=== PATIENT | female | born 1980 | race Caucasian/White ===

== ENCOUNTER 2019-03-31 20:35 | Inpatient (IN) | payer SELFPAY, OTHER ==
[2019-03-31 21:12] VITALS: BMI 28.8
[2019-03-31] MEDS: Lactated Ringers 500 ML 999 ML IV (21:30)
[2019-03-31] MEDS: Azithromycin 250 MG Tablet 500 MG PO (21:47)
[2019-03-31] MEDS: Betamethasone/Betamethasone 30 MG/5 ML Vial 12 MG IM (21:47)
[2019-03-31] MEDS: Lactated Ringers 1,000 ML 50 ML IV (22:00)
[2019-03-31 22:18] LABS: Absolute Lymphocyte Count 1.17 X10^3/uL (0.83-4.51); Absolute Neutrophil Count 10.3 X10^3/uL (2.0-7.7); Basophil# 0.02 X10^3/uL; Basophil% 0.2 % (0-1); Eosinophil# 0.02 X10^3/uL; Eosinophils% 0.2 % (0-5); Hematocrit 38.6 % (37-47); Hemoglobin 12.8 g/dL (12.0-15.0); Lymphocyte # 1.17 X10^3/ul (4.0); Lymphocyte % 9.2 % (19-41); Mean Corp Hgb Conc 33.2 g/dL (32-36); Mean Corpuscular Hgb 30.6 pg (27.0-32.0); Mean Corpuscular Volume 92.3 fL (81-99); Monocyte# 1.09 X10^3/uL; Monocyte% 8.6 % (0-10); NRBC Flagged by Analyzer 0 % (0-5); Neutrophil # 10.31 X10^3/uL (2.7-7.7); Neutrophil % 81.3 % (47-70); Platelet Count 251 K/mm3 (150-450); RBC Distribution Width CV 13.5 % (11.6-14.6); RBC Distribution Width SD 45.3 fl (35.1-43.9); Red Blood Count 4.18 M/mm3 (4.2-5.4); White Blood Count 12.7 K/mm3 (4.4-11.0)
[2019-03-31 22:23] LABS: ROM Internal Control Test YES-OK TO RESULT pt. (Internal QC); Record Kit Lot#, ROM+ J8255
[2019-03-31 22:24] LABS: ROM Patient Test POSITIVE (Negative)
[2019-03-31 22:55] LABS: Bacteria 0 SEEN /hpf (None Seen)
[2019-03-31 22:56] LABS: Color, Urine Yellow (Yellow); Glucose, Dipstick Normal (Normal); Leukocyte Esterase-Dipstick 500 /ul (Negative); Nitrite-Dipstick Negative (Negative); Occult Blood-Urine 10 /ul (Negative); Protein-Dipstick 15 mg/dl (Negative); Specific Gravity, Urine 1.025 (1.002-1.030); Urine Bilirubin Dipstick Negative (Negative); Urine Clarity Clear (Clear); Urine Urobilinogen Normal (Normal)
[2019-03-31 23:05] LABS: Ketone-Dipstick 150 mg/dl (Negative)
[2019-03-31 23:08] LABS: Rubella IgG 138.1 IU/mL
[2019-03-31 23:13] LABS: Mucous, Urine 1+ /hpf (<or=2+); Red Blood Cells-Urine 0 SEEN /hpf (0-5); Squamous Epithelial Cells - UA 0-5 SEEN /hpf (5-10); White Blood Cells 5-10 SEEN /hpf (0-5)
[2019-03-31 23:24] LABS: Group B Strep DNA By PCR Negative (Negative); Internal Control PASS; Probe Check PASS; Specimen Processing Control PASS
[2019-04-01 01:13] LABS: Chlamydia Trachomatis by PCR Negative (Negative); Neisserai gonorrhoeae by PCR Negative (Negative); Probe Check PASS; Sample Adequacy Control PASS; Specimen Processing Control PASS
[2019-04-01] MEDS: Amnioinfusion- 0.9% NS 1,000 ML IV.SOLN. 1000 ML INTRA-UTER (01:53)
--- NOTE | 2019-04-01 02:24 | PCM.HP.OB ---
- Problem List (1) premature rupture of membranes (PPROM) with onset of labor after 24 hours of rupture in third trimester, antepartum Status: Acute (2) History of delivery Status: Acute (3) Grand multipara in labor Status: Acute (4) Prematurity of fetus Status: Acute History Date of Admission: 03/31/19 Final FANNY: 05/06/19 Gestational age: 35 Weeks and 0 Days History of this : This is a 38 year-old, , at 34 weeks gestational age presents with P PROM. She started having clear loss of fluid at 6 AM on 10 and has intermittent discharge then with clear fluid. Patient denies any fevers or significant abdominal pain. She is a history of one previous delivery and one . 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 She has not had a formal ultrasound or lab work on the prior to today. Surgical History: Surgical History (Last Updated 04/01/19 @ 02:28 by Tiffany Villalba MD) History of delivery Z98.891 Allergies No Known Allergies Allergy (Verified 03/31/19 22:21) Smoking Status: Never smoker Alcohol: None Number of Fetus(es): 1 NST - FHR Rate Baby A Baseline: 140 Variability:: Moderate Accelerations:: 15 x 15 Decelerations:: Variable NST Reactive:: Yes FHR Category:: Category I Uterine Activity:: q 5-7 History Past Pregnancies: Past Pregnancies first delivery for breech 5 term vaginal deliveries uncomplicated 1 vaginal delivery uncomplicated 36 weeks, P PROM Labs: Mom's Microbiology 03/31/19 Unknown Genital vaginal Group B Streptococcus Culture - Pending Mom's Problem List Problem Status Onset Code premature rupture of membranes (PPROM) with onset of labor after 24 hours of rupture in third trimester, antepartum Acute O42.113 History of delivery Acute Z98.891 Grand multipara in labor Acute O09.40 Prematurity of fetus Acute P07.30 Mom's Labs & Results 03/31/19 03/31/19 03/31/19 21:04 21:04 21:27 WBC RBC Hgb Hct MCV MCH MCHC RDW Std Deviation RDW Coeff of [place] Plt Count MPV Immature Gran % (Auto) Neut % (Auto) Lymph % (Auto) [place] % (Auto) Eos % (Auto) Baso % (Auto) Absolute Neuts (auto) Absolute Lymphs (auto) Nucleated RBC % Urine Color Urine Clarity Urine pH Ur Specific Wilson Urine Protein Urine Glucose (UA) Urine Ketones Urine Occult Blood Urine Nitrite Urine Bilirubin Urine Urobilinogen Ur Leukocyte Esterase Urine RBC Urine WBC Ur Squamous Epith Cells Urine Bacteria Urine Mucus Vag Amniotic Fld Detect POSITIVE H RPR Chlam trachomat DNA PCR Hep Bs Antigen Hepatitis C Antibody HIV 1&2 Antibody N.gonorrhoeae DNA (PCR) Rubella IgG Antibody 138.1 Group B Strep DNA Negative Specimen Comment Not Reportable Blood Type Antibody Screen 03/31/19 03/31/19 03/31/19 21:27 21:27 21:27 WBC 12.7 H RBC 4.18 L Hgb 12.8 Hct 38.6 MCV 92.3 MCH 30.6 MCHC 33.2 RDW Std Deviation 45.3 H RDW Coeff of [place]ore[place] 13.5 Plt Count 251 MPV 10.0 Immature Gran % (Auto) 0.500 Neut % (Auto) 81.3 H Lymph % (Auto) 9.2 L [place] % (Auto) 8.6 Eos % (Auto) 0.2 Baso % (Auto) 0.2 Absolute Neuts (auto) 10.3 H Absolute Lymphs (auto) 1.17 Nucleated RBC % 0 Urine Color Urine Clarity Urine pH Ur Specific Wilson Urine Protein Urine Glucose (UA) Urine Ketones Urine Occult Blood Urine Nitrite Urine Bilirubin Urine Urobilinogen Ur Leukocyte Esterase Urine RBC Urine WBC Ur Squamous Epith Cells Urine Bacteria Urine Mucus Vag Amniotic Fld Detect RPR Pending Chlam trachomat DNA PCR Hep Bs Antigen Pending Hepatitis C Antibody Pending HIV 1&2 Antibody Pending N.gonorrhoeae DNA (PCR) Rubella IgG Antibody Group B Strep DNA Specimen Comment Blood Type Antibody Screen 03/31/19 03/31/19 03/31/19 21:27 22:23 23:25 WBC RBC Hgb Hct MCV MCH MCHC RDW Std Deviation RDW Coeff of [place]orena Plt Count MPV Immature Gran % (Auto) Neut % (Auto) Lymph % (Auto) [place] % (Auto) Eos % (Auto) Baso % (Auto) Absolute Neuts (auto) Absolute Lymphs (auto) Nucleated RBC % Urine Color Yellow Urine Clarity Clear Urine pH 5.0 Ur Specific Wilson 1.025 Urine Protein 15 H Urine Glucose (UA) Normal Urine Ketones 150 H Urine Occult Blood 10 H Urine Nitrite Negative Urine Bilirubin Negative Urine Urobilinogen Normal Ur Leukocyte Esterase 500 H Urine RBC 0 SEEN Urine WBC 5-10 SEEN Ur Squamous Epith Cells 0-5 SEEN Urine Bacteria 0 SEEN Urine Mucus 1+ Vag Amniotic Fld Detect RPR Chlam trachomat DNA PCR Negative Hep Bs Antigen Hepatitis C Antibody HIV 1&2 Antibody N.gonorrhoeae DNA (PCR) Negative Rubella IgG Antibody Group B Strep DNA Specimen Comment Blood Type O POSITIVE Antibody Screen NEGATIVE Course Did the patient receive Yes care? 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 Gestational Diabetes No Incompetent Cervix No Infertility No IUGR No Macrosomia No Hypertension/Pre-eclampsia No Placenta Previa/Abruption No PTL/PROM Yes Uterine anomaly No Oligohydramnios No Polyhydramnios No Multiple gestation No Past Medical History Asthma No Diabetes No Hypertension No Heart disease No Mitral valve prolapse No Neurologic/Seizure disorder/ No Migraines Kidney disease No Liver disease No Varicosities Yes: legs Clotting disorders/Hx of DVT No Thyroid Dysfunction No Other medical diseases No Psychiatric disorders No Major trauma No Abnormal PAP smear No Sleep apnea No Mammogram in the last 2 years No Social History Marital Status: Alleged father vinay morrell Hx Smoking Yes Smoking Status Never smoker Expected Infant Delivery Method: Review of Systems Constitutional: Denies: Fever, Malaise Eyes: Denies: Blurred vision, Vision Change HEENT: Denies: Head Aches, Visual Changes Cardiovascular: Denies: Chest Pain, Palpitations Respiratory: Denies: Cough, Shortness of Breath, Wheezing Gastrointestinal: Denies: Abdominal Pain, Diarrhea, Nausea, Vomiting Genitourinary: Denies: Dysuria, Hematuria Musculoskeletal: Denies: Joint Pain, Muscle pain Skin: Denies: Lesions, Rash Neurological: Denies: Blurred vision, Focal weakness, Headaches Psychiatric: Denies: Anxiety, Depression Endocrine: Denies: Heat/ Cold Intolerance Hematologic/ Lymphatic: Denies: Easy Bruising, Easy Bleeding Physical Exam General: Alert, Cooperative, No apparent distress HEENT: Atraumatic, Normocephalic. Negative for: Thyromegaly, Lymphadenopathy Cardiovascular: Regular rate Lungs: Normal air movement Abdomen: Soft, Non Tender, Gravid Neurological: Deep Tendon Reflexes 2+/4 and Symmetrical, Neuro grossly intact. 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 Negative for: Vulvar lesions Estimated gestational size: Appropriate for gestational size Presentation: Cephalic Assessment/Plan All Active Problems premature rupture of membranes (PPROM) with onset of labor after 24 hours of rupture in third trimester, antepartum (Acute) History of delivery (Acute) Grand multipara in labor (Acute) Prematurity of fetus (Acute) This is a 38 year-old, , at 35 weeks gestational age resents with P PROM Recommend checking routine panel Start ampicillin and azithromycin. If develops signs or symptoms of chorioamnionitis recommend expanding antibiotic coverage Discussed use of Pitocin may be needed if labor slows and does not progress.
--- NOTE | 2019-04-01 03:34 | PCM.OPRPT ---
Problem List (1) premature rupture of membranes (PPROM) with onset of labor after 24 hours of rupture in third trimester, antepartum Status: Acute (2) History of delivery Status: Acute (3) Grand multipara in labor Status: Acute (4) Prematurity of fetus Status: Acute Vaginal Delivery Maternal Presentation: Active Labor, - - pprom 35 week pprom Medical Reason for Induction: Premature Rupture of Membranes Amniotic Membrane Rupture Type: Spontaneous at home Amniotic Fluid Description: Clear Final FANNY: 05/06/19 Gestational age: 35 Weeks and 0 Days Date of Procedure: 04/01/19 Pre-Operative Diagnosis: pprom Post-Operative Diagnosis: same Surgery/ Procedure Performed: Spontaneous Vaginal Delivery Type of Anesthesia: None Description of Procedure: Patient began pushing and delivered the head in the LLOYD presentation. The head was delivered atraumatically and a loose nuchal cord ?1 was identified and easily reduced over the infant's head. The anterior and posterior shoulders delivered without complication followed by the rest of the infant and the infant was placed on the maternal abdomen. Delayed cord clamping was employed for approximately 60 seconds. Cord was clamped and cut and gentle traction was applied to the cord and the placenta delivered spontaneously immediately following it was noted to be intact with three-vessel cord. The perineum and vagina were inspected and noted to have no laceration. EBL was 100 cc. Patient and infant tolerated delivery well. Presentation: LLOYD Placental Delivery Description: Spontaneous Placenta Disposition: [facility] Cord Vessel Description: 3 Vessels Nuchal Cord Compression: With compression Cord Entanglement: Around neck x 1, loose Drain: Wu to straight drain Estimated Blood Loss: 100 A gender: Female Episiotomy Description: None Laceration: None Complications: None Multi Select Codes - Urinary/Genital Urinary/Genital CPT Codes: 45407 Vaginal Delivery+ Care([facility])
--- NOTE | 2019-04-01 05:21 | NURSING ---
baby transferred to [facility]. pt plans to breastfeed. RN discussed use of breast pump and frequency of pumping. pt verbalized understanding. pt pumping at this time
[2019-04-01 07:37] VITALS: BP 104/59; PULSE 56; RESP 16; TEMP 35.8
[2019-04-01 08:30] VITALS: BP 101/56; PULSE 100; RESP 16; TEMP 36.9
[2019-04-01 10:30] LABS: HIV - WCH Non-Reactive (Nonreactive); Hepatitis B Surface Antigen Non-Reactive (Nonreactive); Hepatitis C Antibody Non-Reactive (Nonreactive)
[2019-04-01 13:37] VITALS: BP 120/73; PULSE 96; RESP 17; TEMP 36.9
[2019-04-01 16:35] VITALS: BP 130/77; PULSE 90; RESP 18; TEMP 36.8
[2019-04-01 20:10] VITALS: BP 113/77; PULSE 75; RESP 18; TEMP 36.1
[2019-04-01 23:28] VITALS: BP 112/71; PULSE 77; RESP 18; TEMP 36.1
[2019-04-02 05:10] VITALS: BP 107/71; PULSE 70; RESP 18; TEMP 36.1; O2SAT 97
--- NOTE | 2019-04-02 07:59 | PCM.PN.OB ---
Patient Problems: Active and Suspected Problems premature rupture of membranes (PPROM) with onset of labor after 24 hours of rupture in third trimester, antepartum (Acute) History of delivery (Acute) Grand multipara in labor (Acute) Prematurity of fetus (Acute) Subjective: doing well no complaints pain controlled no CP SOB N V ambulating well tolerating po lochia moderate, going well P PROM and del at 34wk:baby doing well in [facility]N. - Physical Exam General: Alert, Oriented x3 Abdomen: Soft, Non Tender, Non-Distended, - - FF below U Vital Signs Temp Pulse Resp BP Pulse Ox 97.0 F L 70 18 107/71 97 04/02/19 05:10 04/02/19 05:10 04/02/19 05:10 04/02/19 05:10 04/02/19 05:10 Oxygen Delivery Method Room Air Weight: 184 lb 6.4 oz Body Mass Index (BMI) 28.8 Intake and Output for Last 24 Hours 03/31/19 04/01/19 04/02/19 23:59 23:59 23:59 Intake Total 666.67 / 666.67 1390.67 / 1390.67 Output Total 1350 / 1350 Balance 666.67 / 666.67 40.67 / 40.67 Laboratory Tests Past 24 Hrs 03/31/19 21:27 Hep Bs Antigen Non-Reactive Hepatitis C Antibody Non-Reactive HIV 1&2 Antibody Non-Reactive Medical Necessity - Tobacco Use Smoking Status: Never smoker Assessment/Plan All Active Problems premature rupture of membranes (PPROM) with onset of labor after 24 hours of rupture in third trimester, antepartum (Acute) History of delivery (Acute) Grand multipara in labor (Acute) Prematurity of fetus (Acute) s/p PPD # 1 1. routine post delivery care 2. breast feeding- support given 3. rh positive 4. rubella immune
[2019-04-02 08:47] VITALS: BP 121/82; PULSE 71; RESP 16; TEMP 36.8
[2019-04-02 13:40] VITALS: BP 122/75; PULSE 86; RESP 16; TEMP 37.1
[2019-04-02 20:00] VITALS: BP 132/75; PULSE 77; RESP 16; TEMP 36.7
[2019-04-03 02:00] VITALS: BP 128/76; PULSE 74; RESP 16; TEMP 36.6
--- NOTE | 2019-04-03 06:22 | PCM.PN.OB ---
Patient Problems: Active and Suspected Problems premature rupture of membranes (PPROM) with onset of labor after 24 hours of rupture in third trimester, antepartum (Acute) History of delivery (Acute) Grand multipara in labor (Acute) Prematurity of fetus (Acute) Subjective: doing well no complaints pain controlled no CP SOB N V ambulating well tolerating po lochia moderate, going well - Physical Exam General: Alert, Oriented x3 Vital Signs Temp Pulse Resp BP Pulse Ox 97.9 F 74 16 128/76 H 97 04/03/19 02:00 04/03/19 02:00 04/03/19 02:00 04/03/19 02:00 04/02/19 05:10 Oxygen Delivery Method Room Air Weight: 184 lb 6.4 oz Body Mass Index (BMI) 28.8 Intake and Output for Last 24 Hours 04/01/19 04/02/19 04/03/19 23:59 23:59 23:59 Intake Total 1390.67 / 1390.67 Output Total 1350 / 1350 Balance 40.67 / 40.67 Microbiology Past 72 Hours 03/31/19 Unknown Group B Streptococcus Culture - Preliminary Genital vaginal Group B Beta Streptococcus is not isolated. Medical Necessity - Tobacco Use Smoking Status: Never smoker Assessment/Plan All Active Problems premature rupture of membranes (PPROM) with onset of labor after 24 hours of rupture in third trimester, antepartum (Acute) History of delivery (Acute) Grand multipara in labor (Acute) Prematurity of fetus (Acute) s/p PPD # 2 1. routine post delivery care 2. breast feeding- support given 3. rh positive 4. rubella immune
--- NOTE | 2019-04-03 06:23 | DCINST_ITS ---
Discharge Diet: No Restrictions Discharge Activity: Return to Normal Activity, May not drive while taking narcotic pain medications., May Shower May resume sexual activity in: 4-6 weeks Call your doctor if your incision/area has: Continuous Slow Oozing, Sudden Increased Bleeding, Increased Pain/ Swelling, Increased Redness, Foul Smelling Discharge Additional Instructions: If you experience any of the following, contact your healthcare provider. * Bleeding that soaks a pad every hour for 2 hours * Fever 100.4 or higher * Unrelieved incision or abdominal pain * Swelling, redness, discharge or bleeding from your incision or episiotomy site * Your incision begins to separate * Problems urinating (including inability to urinate or burning while urinating). * Visual changes * Severe headache * Flu-like symptoms * Pain or redness in one of both of your breasts * Pain, warmth, tenderness or swelling in your legs, especially the calf area * Frequent nausea and vomiting * Symptoms of depression or anxiety If you experience any of the following, call 911 or go to the nearest Emergency Room. * Chest pain * Problems breathing * Seizure activity * Partial or complete paralysis of a body part, slurred speech, weakness or drooping of the face, or a sudden inability to walk or hold your balance Allergies/Adverse Reactions: Allergies No Known Allergies Allergy (Verified 03/31/19 22:21) Please Follow Up With: Tiffany Villalba MD - [phone] When: Call to make an appointment with your doctor in 6 weeks. If you had elevated Blood pressure or 4th degree laceration you will need to be seen in 2 weeks. Primary Care Physician: Care Physician,No Primary [Primary Care Provider] - Test Results: Test results from this visit will be discussed in further detail at your follow- up appointment, if applicable.
--- NOTE | 2019-04-03 06:23 | PCM.DCVAG ---
Discharge Diet: No Restrictions Discharge Activity: Return to Normal Activity, May not drive while taking narcotic pain medications., May Shower May resume sexual activity in: 4-6 weeks Call your doctor if your incision/area has: Continuous Slow Oozing, Sudden Increased Bleeding, Increased Pain/ Swelling, Increased Redness, Foul Smelling Discharge Additional Instructions: If you experience any of the following, contact your healthcare provider. Bleeding that soaks a pad every hour for 2 hours Fever 100.4 or higher Unrelieved incision or abdominal pain Swelling, redness, discharge or bleeding from your incision or episiotomy site Your incision begins to separate Problems urinating (including inability to urinate or burning while urinating). Visual changes Severe headache Flu-like symptoms Pain or redness in one of both of your breasts Pain, warmth, tenderness or swelling in your legs, especially the calf area Frequent nausea and vomiting Symptoms of depression or anxiety If you experience any of the following, call 911 or go to the nearest Emergency Room. Chest pain Problems breathing Seizure activity Partial or complete paralysis of a body part, slurred speech, weakness or drooping of the face, or a sudden inability to walk or hold your balance Allergies/Adverse Reactions: Allergies No Known Allergies Allergy (Verified 03/31/19 22:21) Please Follow Up With: Tiffany Villalba MD - [phone] When: Call to make an appointment with your doctor in 6 weeks. If you had elevated Blood pressure or 4th degree laceration you will need to be seen in 2 weeks. Primary Care Physician: Care Physician,No Primary [Primary Care Provider] - Test Results: Test results from this visit will be discussed in further detail at your follow-up appointment, if applicable.
[2019-04-03 08:00] VITALS: BP 98/76; PULSE 82; RESP 16; TEMP 37.2
[2019-04-03 14:00] VITALS: PULSE 80; RESP 17
[2019-04-03 18:00] VITALS: BP 130/82; PULSE 74; RESP 16; TEMP 37
[2019-04-04 01:54] LABS: Rapid Plasmin Reagin (RPR) NONREACTIVE (NONREACTIVE)
--- NOTE | 2019-04-04 15:57 | CASEMGMT ---
Social Work Labor and Delivery Date of Intervention:?04-04-2019 Time of Intervention:?1430 Referral source: Social work identification ? Reason for Referral:?baby admitted to the [facility]. ? History Patient/mother of baby (BARBARA) was discharged from [facility] as of 04.03.2019. MOB delivered Baby nohemy Felix on 04.01.2019. BARBARA is a 38 year old female, to father of baby (FOB) Bret Felix, age 42. ?Parents are Anthony. ? care this was provided by a long wall mining machine tender Clara Moya. ?MOB reports had intended to deliver at home, but upon going into early labor came to [facility] for delivery. ??MOB is to 8 after delivering baby girl Uma. ??Other minor children in this family include: ?Kamila (age 16), Ayaka (age 15), Efra (age 13), Laina (age 10), Noah (age 8), Hina (age 6), and Jose Bryan (age 4). ??FOB work. 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 ?No reported safety concerns at home indicated. ?No reports or indication of any substance use issues or mental health concerns. ? ? Impression Met with BARBARA in her courtesy provided room at on the labor and delivery unit. Educated MOB that this business writer is the social welfare research worker for hospital of delivery, and for continuity of care of families on the [facility] also provides social work to the [facility]. ??MOB's oldest child also in the room. ?MOB denies any concerns at this time, reports to be thankful for a unit such as the [facility] to help her baby and for hospital of delivery allowing MOB to stay in a courtesy room. MOB is planning to breast feed baby, reports to have needed supplies for the baby, and to have help from family. ??MOB has good eye contact, ?Bright affect and mood, smiled, and easily engaged in conversation. ?No concerns voiced by nursing staff about mother/child bonding or interaction. ???Educated MOB to NICU stays increasing risk for mood issues. MOB accepting of information being given for home going. Left this business writer's card should MOB have any questions about packet provided. ?? ? Plan MOB has been discharged. MOB has been given information on mood and anxiety issues. ?? No other needs for MOB, but social work will remain available while baby is admitted to the [facility]. DEANNE Rayo
== END 2019-04-03 18:30 | disposition home or self-care (01) | DRG 807 ==
PROVIDERS: Admitting Provider Obstetrics & Gynecology; Referring Provider Obstetrics & Gynecology; Visit Provider Obstetrics & Gynecology
DX: O60.14X0 Preterm labor third trimester with preterm delivery third trimester, not applicable or unspecified (principal); Z37.0 Single live birth; Z3A.35 35 weeks gestation of pregnancy; O34.219 Maternal care for unspecified type scar from previous cesarean delivery; O69.81X0 Labor and delivery complicated by cord around neck, without compression, not applicable or unspecified
CPT/HCPCS: 59025; 59050; 81001; 84112; 85025; 86592; 86703; 86762; 86803; 86850; 86900; 86901; 87081; 87340; 87491; 87591; 87653; 99218; J7030; J7120; G0378; J0290; J0702